=== PATIENT | female | born 1950 | race Caucasian/White ===

== ENCOUNTER → 2016-12-16 | Outpatient (CLI) | payer MEDICARE, BC ==
--- NOTE | 2016-12-16 14:37 | REPMRS ---
Patient History The patient states she had a clinical breast exam in 12/24 Patient is postmenopausal and had first child at age 29. Family history of breast cancer in 2 paternal cousins at age 50 or over. Digital Woman Screen Mammo: December 16, 2016 - Exam #: [id number] Bilateral CC and MLO view(s) were taken. Technologist: Nataly Jacinto, Technologist Prior study comparison: November 27, 2015, digital woman screen mammo performed at [facility]. November 16, 2014, digital woman screen mammo performed at [facility]. FINDINGS: The breast tissue is heterogeneously dense. This may lower the sensitivity of mammography. There has been no change in the appearance of the mammogram from the prior studies. There is a moderate amount of residual fibroglandular tissue which is fairly symmetric. There is no interval development of dominant mass, areas of architectural distortion, or clustered microcalcification typical of malignancy. ASSESSMENT: BI-RADS/ACR category 1 mammogram. Negative. Recommendation Routine screening mammogram in 1 year (for women over age 40). This mammogram was interpreted with the aid of an FDA-approved computer-aided dectection system. Electronically Signed By: Jean Wilkes MD 12/16/16 [id number]
--- NOTE | 2016-12-18 10:00 | DEXA ---
AP SPINE L1 - L4 1.189 0.0 0.8 LT FEMUR TOTAL 1.082 0.6 1.4 RT FEMUR TOTAL 1.082 0.6 1.4 TOTAL BODY TOTAL OTHER DUAL FEMUR FRAX* ASSESSMENT Risk factors: None. 10 year probability of fracture Major osteoporotic fracture 7.6 % Hip fracture 0.6 % COMMENTS: Normal bone densitometry of the spine and hips. The decreased density of the spine does not represent a significant change. The decreased density of the left hip does not represent a significant change. The decreased density of the right hip does not represent a significant change. The density of the spine has decreased 5.6% since the initial exam on 2002. The spine density has decreased 0.6% since the most recent exam on 02/01/2008. The density of the left hip has decreased 1.5% since the initial exam on 2002. The density of the left hip has decreased 0.8% since the most recent exam on . The density of the right hip has decreased 7.4% since the initial exam on 2002. The density of the right hip has decreased 1.8% since the most recent exam on . FOLLOW-UP: Recommendation for the next bone density exam: 5 years. RAMÓN
== END ==
LOC: M WHC 13:41
PROVIDERS: ATTEND Nurse Practitioner Women's Health
DX: Z01.419 Encounter for gynecological examination (general) (routine) without abnormal findings (principal); Z12.31 Encounter for screening mammogram for malignant neoplasm of breast; Z78.0 Asymptomatic menopausal state; Z13.820 Encounter for screening for osteoporosis; Z12.12 Encounter for screening for malignant neoplasm of rectum
CPT/HCPCS: 77080; 82270; G0101; G0202

== ENCOUNTER → 2016-12-16 | Outpatient (REF) | payer MEDICARE, OTHER | LOC: M SFHCWAGY 13:49 | PROVIDERS: ATTEND Nurse Practitioner Women's Health | DX: Z12.4 Encounter for screening for malignant neoplasm of cervix (principal) ==

== ENCOUNTER → 2018-02-16 | Outpatient (CLI) | payer MEDICARE, BC | LOC: M WHC 10:44 | DX: Z12.31 Encounter for screening mammogram for malignant neoplasm of breast (principal); Z78.0 Asymptomatic menopausal state; Z12.4 Encounter for screening for malignant neoplasm of cervix; N95.2 Postmenopausal atrophic vaginitis | CPT/HCPCS: 77067; G0123 ==

== ENCOUNTER → 2018-02-16 | Outpatient (REF) | payer MEDICARE, OTHER | LOC: M SFHCWAGY 11:14 | DX: Z12.4 Encounter for screening for malignant neoplasm of cervix (principal); N95.2 Postmenopausal atrophic vaginitis ==

== ENCOUNTER → 2018-06-08 | Outpatient (REF) | payer MEDICARE, OTHER ==
[2018-06-08 14:08] LABS: NT-PRO BNP < 5 PG/ML (<125)
== END ==
LOC: M LAB REF 13:36
DX: I50.32 Chronic diastolic (congestive) heart failure (principal)
CPT/HCPCS: 83880

== ENCOUNTER → 2018-07-23 | Outpatient (CLI) | payer MEDICARE, BC, OTHER ==
--- NOTE | 2018-07-23 13:46 | REP ---
DIAGNOSTIC MAMMOGRAM RIGHT BREAST WITH 3D TOMOSYNTHESIS AND RIGHT BREAST ULTRASOUND: Patient reports a lump in the right axillary tail region. The area is marked on the skin with a triangular marker. Right breast mammography performed in the MLO, ML and CC projections with 3D tomosynthesis. There is moderate fibroglandular tissue present. There is no change since multiple prior studies, most recently 02/16/2018. There is no new mass or clustered microcalcifications. Real-time sonographic evaluation of the right breast performed at the site of the reported palpable abnormality superiorly near the right axilla. No suspicious mass is seen in this region. There are three normal sized axillary lymph nodes present all with a short axis dimension of less than 1 cm. IMPRESSION: ACR 2 benign. No mass or clustered microcalcifications. There is no mammographic or sonographic evidence of a mass at the site of the reported palpable abnormality in the upper outer quadrant of the right breast in the region of the axillary tail. Clinical correlation and followup recommended. BI-RADS/ACR category 2 mammogram. Benign finding(s). Routine annual screening mammography (for women over age 40). This mammogram was interpreted with the aid of an FDA-approved computer-aided detection system. The patient states she/he had a clinical breast exam in 07/2018. The patient letter being requested is M2. Electronically Signed by Jean Wilkes MD 07/23/2018 02:32 P
== END ==
LOC: M RAD 09:52
PROVIDERS: ATTEND Nurse Practitioner Women's Health
DX: N63.10 Unspecified lump in the right breast, unspecified quadrant (principal)
CPT/HCPCS: 76642; 77065; G0279

== ENCOUNTER → 2019-03-24 | Outpatient (CLI) | payer MEDICARE, BC ==
--- NOTE | 2019-03-24 11:09 | REPMRS ---
Patient History The patient states she had a clinical breast exam in 03/2019. Patient is postmenopausal and had first child at age 29. Family history of breast cancer at age 50 or over in paternal cousin, pancreatic cancer at age 50 or over in paternal cousin. No Hormone Replacement Therapy Digital Woman Screen Mammo: March 24, 2019 - Exam #: [id number] Bilateral CC and MLO view(s) were taken. Technologist: Daisy Burrows, Technologist Prior study comparison: July 23, 2018, right breast digital mammo diagnostic unilateral, performed at [facility]. February 16, 2018, bilateral digital woman screen mammo performed at [facility]. December 16, 2016, digital woman screen mammo performed at [facility]. November 27, 2015, digital woman screen mammo performed at [facility]. FINDINGS: The breast tissue is heterogeneously dense. This may lower the sensitivity of mammography. There is a moderate amount of heterogeneously dense fibroglandular tissue which is fairly symmetric. There is no interval development of dominant mass, architectural distortion, or grouped microcalcification typical of malignancy. There has been no change in the appearance of the mammogram from the prior studies. 3-D tomosynthesis shows no additional findings. Assessment: BI-RADS/ACR category 1 mammogram. Negative Mammogram. Recommendation Routine screening mammogram of both breasts in 1 year (for women over age 40). This patient's Lifetime Breast Cancer RIsk is estimated at 7.6 %. This mammogram was interpreted with the aid of an FDA-approved computer-aided dectection system. Electronically Signed By: Shashi Stewart MD 03/24/19 [id number]
== END ==
LOC: M WHC 08:17
PROVIDERS: ATTEND Nurse Practitioner Women's Health
DX: Z12.31 Encounter for screening mammogram for malignant neoplasm of breast (principal); Z78.0 Asymptomatic menopausal state
CPT/HCPCS: 77063; 77067; G0463

== ENCOUNTER → 2020-05-10 | Outpatient (REF) | payer MEDICARE, OTHER | LOC: M SFHCWAGY 13:08 | PROVIDERS: ATTEND Nurse Practitioner Women's Health | DX: Z12.4 Encounter for screening for malignant neoplasm of cervix (principal); N95.8 Other specified menopausal and perimenopausal disorders ==

== ENCOUNTER → 2020-05-10 | Outpatient (CLI) | payer MEDICARE, BC ==
--- NOTE | 2020-05-10 10:37 | REPMRS ---
Patient History The patient states she had a clinical breast exam in 2019. Family history of breast cancer at age 50 or over in paternal cousin, pancreatic cancer at age 50 or over in paternal cousin. No Hormone Replacement Therapy 3D TOMOSYNTHESIS WAS PERFORMED. The [employer] lifetime risk for breast cancer is 7.2% VOLPARA DENSITY B. Digital Woman Screen Mammo: May 10, 2020 - Exam #: [id number] Bilateral CC and MLO view(s) were taken. Technologist: Kathi Escobar, Technologist Prior study comparison: March 24, 2019, bilateral digital woman screen mammo performed at [facility] [place]. July 23, 2018, right breast digital mammo diagnostic unilateral, performed at [facility]. FINDINGS: The breast tissue is heterogeneously dense. This may lower the sensitivity of mammography. There has been no change in the appearance of the mammogram from the prior studies. There is a moderate amount of residual fibroglandular tissue which is fairly symmetric. There is no interval development of dominant mass, areas of architectural distortion, or clustered microcalcification typical of malignancy. Assessment: BI-RADS/ACR category 1 mammogram. Negative Mammogram. Recommendation Routine screening mammogram in 1 year (for women over age 40). This mammogram was interpreted with the aid of an FDA-approved computer-aided dectection system. Electronically Signed By: Jean Wilkes MD 05/10/20 [id number]
== END ==
LOC: M WHC 09:07
PROVIDERS: ATTEND Nurse Practitioner Women's Health
DX: Z12.31 Encounter for screening mammogram for malignant neoplasm of breast (principal); Z12.4 Encounter for screening for malignant neoplasm of cervix; N95.8 Other specified menopausal and perimenopausal disorders
CPT/HCPCS: 77063; 77067; G0101; G0123

== ENCOUNTER → 2021-07-23 | Outpatient (CLI) | payer MEDICARE, OTHER ==
--- NOTE | 2021-07-23 12:34 | REPMRS ---
Patient History The patient states she had a clinical breast exam in July 2021. Family history of breast cancer at age 50 or over in paternal cousin, pancreatic cancer at age 50 or over in paternal cousin. No Hormone Replacement Therapy Patient states no breast complaints today. Patient has signed MRS History Sheet. Digital Woman Screen Mammo: July 23, 2021 - Exam #: [id number] Bilateral CC and MLO view(s) were taken. Technologist: Nataly Jacinto, Technologist Prior study comparison: May 10, 2020, bilateral digital woman screen mammo performed at [facility]. March 24, 2019, bilateral digital woman screen mammo performed at [facility]. FINDINGS: There are scattered fibroglandular densities. Screening. Digital screening (2D) mammography was performed bilaterally in the CC and MLO projections. Additionally, breast tomosynthesis (3D mammography) was performed bilaterally in the CC and MLO projections. Todays exam was compared to the prior exam/exams. By history, the patient has no complaints of a palpable breast abnormality or other significant breast complaints. The breasts are unchanged in size and shape. There are no wisam-soft tissue densities or spiculated masses. There is no internal architectural distortion.Calcifications are again seen in the breast/breasts. Some of these are in groups but no one group appears more suspicious than any other. There are no suspicious wisam-calcific clusters. Skin thickening or nipple retraction is not present. IMPRESSION: BI-RADS Category 2- Benign Findings. There is no evidence of malignant alteration of the breasts. Followup examination recommended in one year. The Volpara volumetric breast density category is B, there are scattered areas of fibroglandular densities. This mammogram was read with the assistance of [employer],an FDA approved computer aided detection system for mammography. The lifetime Tyrer-Cuzick score is 6.8 % Negative x-ray reports should not delay surgical consultation if a dominant or clinically suspicious mass is present. Not all breast cancers can be identified by mammography. Therefore, we recommend that you continue to perform regular breast self-examination and physical examination and then promptly contact your physician of any concerns or changes. Adenosis and dense breasts may obscure an underlying neoplasm. Assessment: BI-RADS/ACR category 2 mammogram. Benign Findings. Recommendation Routine screening mammogram of both breasts in 1 year. Electronically Signed By: Delbert Valle DO 07/23/21 [id number]
== END ==
LOC: M WHC 11:01
PROVIDERS: ATTEND Nurse Practitioner Women's Health
DX: Z01.419 Encounter for gynecological examination (general) (routine) without abnormal findings (principal); Z12.31 Encounter for screening mammogram for malignant neoplasm of breast; R92.1 Mammographic calcification found on diagnostic imaging of breast
CPT/HCPCS: 77063; 77067; G0101

== ENCOUNTER → 2021-09-05 | Outpatient (CLI) | payer MEDICARE, OTHER | LOC: M WHC 13:18 | PROVIDERS: ATTEND Internal Medicine | DX: N63.11 Unspecified lump in the right breast, upper outer quadrant (principal) | CPT/HCPCS: 76642; 77065; G0279 ==

== ENCOUNTER → 2022-12-17 | Outpatient (REF) | payer MEDICARE, BC, OTHER | LOC: M SFHCWAGY 17:48 | PROVIDERS: ATTEND Nurse Practitioner Family | DX: Z12.4 Encounter for screening for malignant neoplasm of cervix (principal); N95.2 Postmenopausal atrophic vaginitis | CPT/HCPCS: 87624; G0123 ==

== ENCOUNTER → 2022-12-17 | Outpatient (CLI) | payer MEDICARE, BC, OTHER | LOC: M WHC 08:51 | PROVIDERS: ATTEND Nurse Practitioner Family | DX: Z12.31 Encounter for screening mammogram for malignant neoplasm of breast (principal); Z13.820 Encounter for screening for osteoporosis; M85.852 Other specified disorders of bone density and structure, left thigh ==

== ENCOUNTER → 2023-07-07 | Outpatient (CLI) | payer MEDICARE, BC, OTHER | LOC: M PLAIMG 12:18 | PROVIDERS: ATTEND Internal Medicine | DX: R06.02 Shortness of breath (principal) ==

== ENCOUNTER 2024-02-10 20:19 | Inpatient (IN) | payer MEDICARE, BC ==
[~2024-02-10] VITALS: Ht 160 cm; Wt 75.7 kg
[2024-02-10 21:07] LABS: VENOUS BASE EXCESS -0.1 (-2.0-2.0); VENOUS HCO3 23.2 MMOL/L (23.0-27.0); VENOUS PARTIAL PRESSURE CO2 33.4 mmHg (38.0-50.0); VENOUS PARTIAL PRESSURE O2 149.8 mmHg (30.0-50.0); VENOUS PH 7.459 UNITS (7.330-7.430); VENOUS STANDARD HCO3 24.5 MMOL/L; VENOUS TOTAL CO2 24.2 MMOL/L (24.0-28.0)
[2024-02-10 21:18] LABS: BASO # 0.1 10^3/uL (0.0-0.2); BASO % 0.4 % (0.0-1.0); EOS # 0.1 10^3/uL (0.0-0.5); EOS % 0.5 % (0.0-3.0); HEMOGLOBIN 12.3 g/dl (12.0-15.5); LYMPH # 2.6 10^3/uL (1.5-5.0); LYMPH % 15.8 % (24.0-44.0); MEAN CORPUSCULAR HEMOGLOBIN 32.5 pg (27.0-33.0); MEAN CORPUSCULAR HGB CONC 34.2 g/dl (32.0-36.5); MONO # 1.1 10^3/uL (0.0-0.8); MONO % 6.8 % (2.0-8.0); NEUTROPHILS # 12.2 10^3/uL (1.5-8.5); NEUTROPHILS % 75.4 % (36.0-66.0); PLATELET COUNT, AUTOMATED 269 10^3/uL (150-450); RED BLOOD COUNT 3.79 10^6/uL (4.00-5.40); WHITE BLOOD COUNT 16.2 10^3/uL (4.0-10.0)
[2024-02-10 21:35] LABS: CK-MB VALUE MASS < 1.0 NG/ML (<3.6)
[2024-02-10 21:37] LABS: ALBUMIN 3.2 G/DL (3.2-5.2); ALKALINE PHOSPHATASE 74 U/L (46-116); ALT/SGPT 20 U/L (7.0-40); AST/SGOT 19 U/L (<34); BILIRUBIN,DIRECT 0.5 MG/DL (<0.4); BILIRUBIN,TOTAL 1.1 MG/DL (0.3-1.2); BLOOD UREA NITROGEN 11 MG/DL (9-23); CALCIUM LEVEL 8.4 MG/DL (8.3-10.6); CARBON DIOXIDE LEVEL 24 MMOL/L (20-31); CHLORIDE LEVEL 105 MMOL/L (98-107); CPK CREATINE PHOSPHOKINASE 36 U/L (34-145); CREATININE FOR GFR 0.68 MG/DL (0.55-1.30); GLOMERULAR FILTRATION RATE > 60.0 (>39); GLUCOSE, FASTING 107 MG/DL (74-106); MB/CK RELATIVE INDEX 2.77 (< OR =4); POTASSIUM SERUM 3.5 MMOL/L (3.5-5.1); SODIUM LEVEL 137 MMOL/L (136-145); TOTAL PROTEIN 6.6 G/DL (5.7-8.2)
[2024-02-10 21:39] LABS: THYROID STIMULATING HORMONE 1.154 uIU/ML (0.55-4.78)
[2024-02-10] MEDS ORDERED: ISOVUE-370 76% 100ML VIAL As Ordered ONE (22:21)
[2024-02-10 22:28] LABS: PROCALCITONIN 0.09 ng/ml
[2024-02-10] MEDS: METOPROLOL TART 50 MG TAB PO ONE (22:37)
[2024-02-10] MEDS: NS 1,000 ML IV ONE (22:37)
[2024-02-10] MEDS: cefTRIAXone SOD 2 GM in D5W MINI-BAG PLUS 50 ML IV ONE (22:37)
[2024-02-10] MEDS: METOPROLOL 5 MG/5 ML VIAL IV PRN (22:37)
[2024-02-10 23:39] LABS: CK-MB VALUE MASS < 1.0 NG/ML (<3.6); CPK CREATINE PHOSPHOKINASE 52 U/L (34-145); MB/CK RELATIVE INDEX 1.92 (< OR =4)
[2024-02-10] MEDS: DRONEDARONE 400 MG TAB (MULTAQ) PO ONE (23:41)
[2024-02-11] VITALS (12 sets, daily range): BP systolic 87–115; BP diastolic 55–77; TEMP 97.8–100.6; O2SAT 92–97
[2024-02-11] MEDS ORDERED: SPIR-10 PO (00:26)
[2024-02-11] MEDS ORDERED: EQL50TAB2 PO (00:26)
[2024-02-11] MEDS ORDERED: BACL5TAB2 PO (00:26)
[2024-02-11] MEDS ORDERED: METO1TAB7 PO (00:26)
[2024-02-11] MEDS ORDERED: ALBU8.5H INH (00:26)
[2024-02-11] MEDS ORDERED: FAMO20TA PO (00:26)
[2024-02-11] MEDS ORDERED: DRON400T PO (00:26)
[2024-02-11] MEDS ORDERED: ELIQ5TAB PO (00:26)
[2024-02-11] MEDS ORDERED: VASC1CAP2 PO (00:26)
[2024-02-11] MEDS ORDERED: MULT-40 PO (00:26)
[2024-02-11] MEDS ORDERED: TIRZ5PEN SC (00:26)
[2024-02-11] MEDS ORDERED: ATOR1TAB19 PO (00:26)
[2024-02-11] MEDS ORDERED: METF-838 PO (00:26)
[2024-02-11] MEDS ORDERED: HOME MED LIST COMPLETE! XX SCH (00:30)
[2024-02-11] MEDS ORDERED: MAALOX 30 ML SUSP *UDC PO PRN (01:05)
[2024-02-11] MEDS ORDERED: GLUCOSE 4 GM CHEW PO PRN (01:05)
[2024-02-11] MEDS ORDERED: MOM 30ML SUSPENSION UDC PO PRN (01:05)
[2024-02-11] MEDS ORDERED: ALBUTEROL 90 MCG/ACT 8GM HFA INHALER INH PRN (01:05)
[2024-02-11] MEDS ORDERED: DEXTROSE 50% 50ML SYRINGE IV PRN (01:05)
[2024-02-11] MEDS ORDERED: GLUCAGON INJ 1MG VIAL SC PRN (01:05)
[2024-02-11] MEDS: DOXYCYCLINE HYCLATE 100 MG in D5W MINI-BAG PLUS 100 ML IV SCH (01:40)
[2024-02-11] MEDS: FAMOTIDINE 20 MG TAB PO SCH (01:40)
[2024-02-11 02:29] LABS: D-DIMER QUANT 0.67 ug/mL (<0.5); INR 1.46; PARTIAL THROMBOPLASTIN TIME 33.9 SECONDS (24.8-34.2); PROTHROMBIN TIME 17.3 SECONDS (12.5-14.5)
[2024-02-11 02:44] LABS: LDH LACTATE DEHYDROGENASE 185 U/L (120-246); MAGNESIUM LEVEL 1.8 MG/DL (1.8-2.4)
[2024-02-11 02:48] LABS: FERRITIN 158.1 NG/ML (7.3-270.7)
[2024-02-11 03:54] LABS: BASO # 0.1 10^3/uL (0.0-0.2); BASO % 0.4 % (0.0-1.0); EOS # 0.1 10^3/uL (0.0-0.5); EOS % 0.9 % (0.0-3.0); HEMATOCRIT 36.3 % (36.0-47.0); HEMOGLOBIN 12.3 g/dl (12.0-15.5); LYMPH % 16.5 % (24.0-44.0); MEAN CORPUSCULAR HEMOGLOBIN 32.9 pg (27.0-33.0); MEAN CORPUSCULAR HGB CONC 33.9 g/dl (32.0-36.5); MEAN CORPUSCULAR VOLUME 97.1 fl (80.0-96.0); MONO # 0.8 10^3/uL (0.0-0.8); MONO % 6.8 % (2.0-8.0); NEUTROPHILS # 9.2 10^3/uL (1.5-8.5); NEUTROPHILS % 74.3 % (36.0-66.0); PLATELET COUNT, AUTOMATED 251 10^3/uL (150-450); RED BLOOD COUNT 3.74 10^6/uL (4.00-5.40); WHITE BLOOD COUNT 12.4 10^3/uL (4.0-10.0)
[2024-02-11] MEDS: REMDESIVIR 200 MG in NS 250 ML IV ONE (04:36)
[2024-02-11] MEDS: NS 1,000 ML IV ONE (04:36)
[2024-02-11] MEDS: INSULIN LISPRO (NovoLOG) PER UNIT SC SCH (07:30)
[2024-02-11] MEDS: DRONEDARONE 400 MG TAB (MULTAQ) PO SCH (08:09)
[2024-02-11] MEDS: APIXABAN 5 MG TAB (ELIQUIS) PO SCH (08:09)
[2024-02-11] MEDS: DOCUSATE SODIUM 100MG CAPSULE PO SCH (08:09)
[2024-02-11] MEDS: METOPROLOL SUCC (TopROL XL) 50MG **XL** TAB PO SCH (08:48)
[2024-02-11 08:56] LABS: ALBUMIN 2.9 G/DL (3.2-5.2); ALKALINE PHOSPHATASE 71 U/L (46-116); ALT/SGPT 23 U/L (7.0-40); AST/SGOT 21 U/L (<34); BILIRUBIN,TOTAL 0.5 MG/DL (0.3-1.2); BLOOD UREA NITROGEN 7 MG/DL (9-23); CARBON DIOXIDE LEVEL 27 MMOL/L (20-31); CHLORIDE LEVEL 107 MMOL/L (98-107); CREATININE FOR GFR 0.58 MG/DL (0.55-1.30); GLOMERULAR FILTRATION RATE > 60.0 (>39); GLUCOSE, FASTING 101 MG/DL (74-106); POTASSIUM SERUM 3.6 MMOL/L (3.5-5.1); SODIUM LEVEL 141 MMOL/L (136-145); TOTAL PROTEIN 6.1 G/DL (5.7-8.2)
[2024-02-11] MEDS ORDERED: SPIRONOLACTONE 25 MG TAB PO SCH (09:00)
[2024-02-11] MEDS: DIGOXIN INJ 0.5 MG/2 ML AMP IV ONE ×2 (09:15→14:05)
[2024-02-11] MEDS: DEXTROMETHORPHAN 60MG/10ML SUSP 90ML BTL(DELSYM) PO PRN (09:16)
[2024-02-11] MEDS ORDERED: CEPACOL LOZENGE PO PRN (09:25)
[2024-02-11] MEDS: METOPROLOL TART 12.5 MG PER 1/2 TAB PO SCH (12:00)
[2024-02-11] MEDS: ACETAMINOPHEN TAB 650MG DOSE (2X325MG) PO PRN (17:27)
[2024-02-11] MEDS: cefTRIAXone SOD 2 GM in D5W MINI-BAG PLUS 50 ML IV SCH (20:39)
[2024-02-11] MEDS ORDERED: INSULIN LISPRO (NovoLOG) PER UNIT SC SCH (21:00)
[2024-02-12] VITALS (10 sets, daily range): BP systolic 100–115; BP diastolic 56–70; TEMP 97.8–98; O2SAT 94–98
[2024-02-12] MEDS: REMDESIVIR 100 MG in NS 250 ML IV SCH (03:39)
[2024-02-12 05:08] LABS: BASO # 0.1 10^3/uL (0.0-0.2); BASO % 0.6 % (0.0-1.0); EOS # 0.1 10^3/uL (0.0-0.5); EOS % 1.3 % (0.0-3.0); HEMATOCRIT 35.1 % (36.0-47.0); HEMOGLOBIN 11.5 g/dl (12.0-15.5); LYMPH % 20.4 % (24.0-44.0); MEAN CORPUSCULAR HEMOGLOBIN 31.9 pg (27.0-33.0); MEAN CORPUSCULAR HGB CONC 32.8 g/dl (32.0-36.5); MEAN CORPUSCULAR VOLUME 97.2 fl (80.0-96.0); MONO # 0.6 10^3/uL (0.0-0.8); MONO % 6.1 % (2.0-8.0); PLATELET COUNT, AUTOMATED 281 10^3/uL (150-450); RED BLOOD COUNT 3.61 10^6/uL (4.00-5.40)
[2024-02-12 05:26] LABS: ALBUMIN 2.8 G/DL (3.2-5.2); ALKALINE PHOSPHATASE 77 U/L (46-116); ALT/SGPT 28 U/L (7.0-40); AST/SGOT 24 U/L (<34); BILIRUBIN,TOTAL 0.4 MG/DL (0.3-1.2); BLOOD UREA NITROGEN 10 MG/DL (9-23); CALCIUM LEVEL 8.3 MG/DL (8.3-10.6); CARBON DIOXIDE LEVEL 26 MMOL/L (20-31); CHLORIDE LEVEL 108 MMOL/L (98-107); CREATININE FOR GFR 0.58 MG/DL (0.55-1.30); GLOMERULAR FILTRATION RATE > 60.0 (>39); GLUCOSE, FASTING 95 MG/DL (74-106); POTASSIUM SERUM 3.6 MMOL/L (3.5-5.1); SODIUM LEVEL 142 MMOL/L (136-145); TOTAL PROTEIN 6.7 G/DL (5.7-8.2)
[2024-02-12 05:56] LABS: PROCALCITONIN 0.04 ng/ml
[2024-02-12] MEDS: DIGOXIN 0.25 MG TAB PO SCH (08:32)
[2024-02-12] MEDS: DOXYCYCLINE HYCLATE 100MG TABLET PO SCH (08:32)
[2024-02-12] MEDS ORDERED: DOXY-440 PO (10:53)
[2024-02-12] MEDS ORDERED: CEFD1CAP9 PO (10:53)
[2024-02-12] MEDS ORDERED: DELS30LI8 PO (10:53)
== END 2024-02-12 12:02 | disposition home or self-care (01) | DRG 177 ==
LOC: M ED 20:19 → M ED INP 23:54 → M ICU 02-11 02:41 → M PCU 02-11 10:58
PROVIDERS: ADMIT Family Medicine; ATTEND Internal Medicine Nephrology
PROC: XW033E5 Introduction of Remdesivir Anti-infective into Peripheral Vein, Percutaneous Approach, New Technology Group 5 (ICD-10-PCS; principal; 2024-02-10)
DX: U07.1 COVID-19 (principal); J15.9 Unspecified bacterial pneumonia; I48.91 Unspecified atrial fibrillation; I50.9 Heart failure, unspecified; K21.9 Gastro-esophageal reflux disease without esophagitis; E78.5 Hyperlipidemia, unspecified; G47.33 Obstructive sleep apnea (adult) (pediatric); E11.9 Type 2 diabetes mellitus without complications; M54.9 Dorsalgia, unspecified; I95.9 Hypotension, unspecified; Z87.891 Personal history of nicotine dependence; Z79.01 Long term (current) use of anticoagulants; Z79.84 Long term (current) use of oral hypoglycemic drugs; Z79.899 Other long term (current) drug therapy; Z88.5 Allergy status to narcotic agent

== ENCOUNTER → 2024-03-01 | Outpatient (CLI) | payer MEDICARE, BC, OTHER ==
[~2024-03-01] MED LIST: ALBU8.5H INH; ATOR1TAB19 PO; BACL5TAB2 PO; CEFD1CAP9 PO; DELS30LI8 PO; DOXY-440 PO; DRON400T PO; ELIQ5TAB PO; EQL50TAB2 PO; FAMO20TA PO; METF-838 PO; METO1TAB7 PO; MULT-40 PO; SPIR-10 PO; TIRZ5PEN SC; VASC1CAP2 PO
== END ==
LOC: M SLEEP HO 08-06 10:38
PROVIDERS: ATTEND Internal Medicine Pulmonary Disease
DX: G47.33 Obstructive sleep apnea (adult) (pediatric) (principal)

== ENCOUNTER → 2024-03-15 | Outpatient (CLI) | payer MEDICARE, BC | LOC: M PLAIMG 09:08 | PROVIDERS: ATTEND Internal Medicine | DX: J18.9 Pneumonia, unspecified organism (principal) ==

== ENCOUNTER → 2024-05-11 | Outpatient (CLI) | payer MEDICARE, BC | LOC: M WHC 08:04 | PROVIDERS: ATTEND Nurse Practitioner Family | DX: Z12.31 Encounter for screening mammogram for malignant neoplasm of breast (principal); R92.333 Mammographic heterogeneous density, bilateral breasts ==

== ENCOUNTER → 2024-11-18 | Outpatient (REF) | payer MEDICARE, BC | LOC: M LAB REF 12:10 | PROVIDERS: ATTEND Internal Medicine | DX: I50.32 Chronic diastolic (congestive) heart failure (principal); H53.8 Other visual disturbances; D50.9 Iron deficiency anemia, unspecified ==

== ENCOUNTER → 2025-03-01 | Outpatient (CLI) | payer MEDICARE, BC ==
[~2025-03-01] MED LIST changes: -EQL50TAB2 PO; +VITA1TAB82 PO
== END ==
LOC: M RAD 07:34
PROVIDERS: ATTEND Internal Medicine
DX: J20.9 Acute bronchitis, unspecified (principal)

== ENCOUNTER → 2025-04-04 | Outpatient (CLI) | payer MEDICARE, BC | LOC: M PLAIMG 09:20 | PROVIDERS: ATTEND Physician Assistant | DX: I48.0 Paroxysmal atrial fibrillation (principal); I08.0 Rheumatic disorders of both mitral and aortic valves; I37.1 Nonrheumatic pulmonary valve insufficiency; I77.810 Thoracic aortic ectasia ==

== ENCOUNTER → 2025-06-01 | Outpatient (REF) | payer MEDICARE, BC | LOC: M LAB REF 13:00 | PROVIDERS: ATTEND Internal Medicine Pulmonary Disease | DX: R05.9 Cough, unspecified (principal) ==

== ENCOUNTER → 2025-06-27 | Day surgery (SDC) | payer MEDICARE, BC ==
[~2025-06-27] VITALS: Ht 160 cm; Wt 77.6 kg
[2025-06-27 12:40] VITALS: TEMP 97.8
[2025-06-27 14:50] VITALS: BP 111/59; O2SAT 97
== END | disposition home or self-care (01) ==
LOC: M SDC 11:45
PROVIDERS: ATTEND Internal Medicine Cardiovascular Disease
DX: I48.91 Unspecified atrial fibrillation (principal); Z53.09 Procedure and treatment not carried out because of other contraindication

== ENCOUNTER → 2025-07-04 | Outpatient (CLI) | payer MEDICARE, BC ==
[~2025-07-04] MED LIST changes: +METHACHOLINE KIT (6 VIAL.NEB PREMIX) INH ONE
== END ==
LOC: M CARPUL 08:58
PROVIDERS: ATTEND Internal Medicine Pulmonary Disease
DX: R05.9 Cough, unspecified (principal)
CPT/HCPCS: 88738; 94010; 94070; 94726; 94729; 95070; J7674